=== PATIENT | female | born 1995 | race Caucasian/White ===

== ENCOUNTER 2016-07-26 11:40 | Emergency (ER) | payer SELFPAY ==
[~2016-07-26] VITALS: Ht 157.5 cm; Wt 49.4 kg
[2016-07-26 11:49] VITALS: TEMP 36.6; Ht 157.5 cm; Wt 49.4 kg
[2016-07-26] MEDS ORDERED: VALA1TAB2 PO (13:39)
--- NOTE | 2016-07-26 13:40 | EMERGENCY ROOM VISIT NOTE ---
History First contact with patient: 12:42 Chief Complaint: SKIN PROBLEM Stated Complaint: LINES, RED ITCHY PAIN History of Present Illness The patient is a 20 year old female who presents to the Emergency Room with complaints of an HSV-1 outbreak. The patient reports that she has had a recurring outbreaks of cold sores on her mouth. She reports that they always occur in the same area, on the left side of the upper lip. She states that she had been initially diagnosed by the [facility], but they did not give her any treatment. She reports that the lip is both itchy and painful. She also states that she has had some itching in the left eye and is unsure if this is related. She states that her symptoms are similar to her previous outbreak. The outbreak began 2 days ago. She denies any fevers/chills. There are no sores within the mouth. Review of Systems A complete 10-point Review of Systems was discussed with the patient, with pertinent positives and negatives listed in the History of Present Illness. All remaining Review of Systems questions can be considered negative unless otherwise specified. Past Medical/Surgical History Medical Problems: (1) No significant medical problems Surgical Problems: (1) No significant past surgical history Social History Smoking Status: Never Smoker Housing Status: lives with roommate Occupation Status: [employer] Current/Historical Medications Scheduled Valacyclovir Hcl (Valtrex), 2,000 MG PO BID Allergies Coded Allergies: NUTS (Verified Allergy, Unknown, HIVES AND THROAT SWELLS, 07/26/16) Physical Exam Vital Signs Date Time Temp Pulse Resp B/P Pulse Ox O2 Delivery O2 Flow Rate FiO2 07/26/16 13:45 74 20 112/67 99 07/26/16 12:56 82 18 108/65 100 Room Air 07/26/16 11:49 36.6 83 18 107/57 100 Room Air Physical Exam VITALS: Vitals are noted on the nurse's note and reviewed by myself. Vital signs stable. GENERAL: This is a 20-year-old female, in no acute distress, nondiaphoretic, well-developed well-nourished. EARS: External auditory canals clear, tympanic membranes pearly hatch without erythema or effusion bilaterally. EYES: Pupils equal round and reactive to light and accommodation. Conjunctivae without injection. Fluorescein stain of the left eye showed no fluorescein uptake. MOUTH: There is an ulceration to the left upper lip consistent with a cold sore. There are no sores within the mouth. NECK: Supple without nuchal rigidity. No lymphadenopathy. NEURO: Patient was alert and oriented to person place and time. Medical Decision & Procedures Medical Decision The patient was evaluated as above. She does have symptoms consistent with the HSV-1 sores that she has previously been diagnosed with. The patient has been complaining about some itching in her eye. A fluorescein stain and slit-lamp examination were performed to rule out ocular herpes infection. There was no uptake seen on fluorescein stain. I do feel it is reasonable to treat this patient with Valtrex. She will need to follow-up with [facility] for further treatment. She verbalized her understanding of my assessment and treatment plan and was discharged home in good condition. Impression Primary Impression: Herpes labialis Departure Information Dispostion Home / Self-Care Condition GOOD Prescriptions Valacyclovir Hcl (VALTREX) 1 Gm Tab 2000 MG PO BID for 1 Day, #4 TAB Prov: Li Hassan ., DORIS 07/26/16 Referrals No Doctor, Assigned (PCP) Patient Instructions My [facility] Additional Instructions Valtrex as prescribed. Follow-up with [facility]. Return for any new/concerning symptoms.
[2016-07-26 13:45] VITALS: BP 112/67; PULSE 74; O2SAT 99
== END 2016-07-26 13:47 | disposition home or self-care (01) ==
LOC: C.EDB 11:42 → C.EDD 13:47
DX: B00.1 Herpesviral vesicular dermatitis (principal)